=== PATIENT | female | born 1975 | race Caucasian/White ===

== ENCOUNTER 2024-10-11 13:03 | Emergency (ER) | payer MEDICARE, OTHER, SELFPAY ==
[2024-10-11 13:13] VITALS: BP 126/83
[2024-10-11 13:55] VITALS: BMI 31.3
--- NOTE | 2024-10-11 15:23 | ED.MUSCINJ ---
HPI-Injury
General
Chief Complaint: Fall
Source: patient
Exam Limitations: none
Time Seen by Provider: 10/11/24 14:45
Nursing documentation reviewed up to this point in time: agreed with
History of Present Illness-Injury
Initial Injury comments:
49 yo female w h/o Myasthenia Gravis, HTN, Hoshimoto's thyroiditis, presents for injury to left wrist and ankle. She was dancing at a neighbor's house last night, fell and injured left foot and ankle and left wrist.
Past History
Past History
ED Past Medical History: HTN and Other (migraines/Laurent's/myasthenia gravis)
ED Past Surgical History: Other (thymectomy)
Social History
Tobacco: Non-smoker
Alcohol: Occasional
Personal:
Living: with family
Employment: Not employed
Review of Systems
Review of Systems
Allergies reviewed?: Yes
All Other Systems: ROS reviewed and negative except as documented in HPI and ROS
Musculoskeletal: Reports other (pain left wrist, left foot and ankle.); Denies neck pain or back pain
Skin: Reports no symptoms
Neurological: Denies weakness or numbness
Musculoskeletal Injury Exam
Musculoskeletal Injury Exam
Left Wrist:
Pain with Movement?: Mild
Tender to palpation?: Mild
Soft tissue swelling?: Mild
Strain- Sprain- Tear (Connective tissue injury)?: Mild
Malalignment/deformity?: No
Range of motion: Limited
Distal skin color and temperature: normal-warm & good color
Capillary Refill: normal
Normal distal neurovascular exam?: Yes
Left Ankle:
Pain with Movement?: Moderate
Tender to palpation?: Moderate (Anterior and lateral aspect)
Soft tissue swelling?: Moderate
External deformity and angulation?: None
Strain- Sprain- Tear (Connective tissue injury)?: Moderate
Malalignment/deformity?: No
Range of motion: Limited
Distal skin color and temperature: normal-warm & good color
Capillary Refill: normal
Normal distal neurovascular exam?: Yes
Left Foot:
Pain with Movement?: Moderate
Tender to palpation?: Moderate (Lateral aspect)
Soft tissue swelling?: Moderate
External deformity and angulation?: None
Strain- Sprain- Tear (Connective tissue injury)?: Moderate
Range of motion: Limited
Distal skin color and temperature: normal-warm & good color
Capillary Refill: normal
Normal distal neurovascular exam?: Yes
Phy Exam
Physical Exam
Physical Exam:
PHYSICAL EXAMINATION:
General: no apparent distress, not acutely ill
Neuro: alert and oriented.
Psychiatric: well kept. interactive and cooperative
Musculoskeletal: Moves with ease
Skin: Warm, pink.
Injury Course
Orders/Labs/Results
Orders:
Orders
10/11/24 13:05
Wrist, Left 3 Views CR [CR Wrist - Left Min 3 Views] Urgent
Comment:
Reason For Exam: fall
10/11/24 13:06
Ankle, left 3 view CR [CR Ankle - Left Min 3 Views ] Urgent
Comment:
Reason For Exam: fall
Foot, Left 3 View [CR Foot - Left Min 3 Views] Urgent
Comment:
Reason For Exam: fall
10/11/24 14:57
0.9% Sodium Chloride 1000 ml [Nss] 1,000 ml IV BOLUS
10/11/24 14:58
Ondansetron Injectable [Zofran] 4 mg IV NOW STA
10/11/24 15:16
Aric Wrap Left-Treatment ONCE
Ortho Boot Left- Treatment ONCE
Short or tall?: Tall
[place] Wrist Left-Treatment ONCE
10/11/24 16:33
Crutches-Treatment ONCE
10/11/24 14:58
10/11/24 14:58
Procedures
Splint Check
Splint checked by provider?: Yes
Circulation/Movement/Sensation post splint application: brisk cap refill and full sensation
MDM/Problems Addressed
Differential Diagnosis Includes:
Fracture versus soft tissue injury to wrist and ankle and foot
MDM/Problems Addressed:
49 yo female w h/o Myasthenia Gravis, HTN, Hoshimoto's thyroiditis, presents for injury to left wrist and ankle. She was dancing at a neighbor's house last night, fell and injured left foot and ankle and left wrist.
Xray left wrist: No fracture. [place] wrist splint applied. Ring removed.
Xray left foot: Neg
Xray left ankle: Avulsion fracture navicular bone
Aric wrap, ortho boot applied. Crutches given
[place] left wrist splint applied, distal N/V intact, brisk capillary refill after application
Referred to orthopedics for f/u
*Critical Care Note
Total Time (30-74mins, 75-104mins- exclusive of procedures): Not Applicable
ED Attending Note
-
Portions of this chart may have been created with voice recognition software.� Occasional wrong word or��sound alike� substitutions may have occurred due to the inherent limitations of voice recognition software.
Discharge Plan
Departure
Patient Disposition: Home (Routine Discharge)
Date of Disposition: 10/11/24
Time of Disposition: 16:33
Patient with high blood pressure during this ER visit?: No
Condition: Good
Discharge Problem:
Fall from slip, trip, or stumble, Sprain of left wrist, Avulsion fracture of ankle, Foot sprain
Instructions: Avulsion Fracture (DC), Wrist Sprain ED, Foot sprain, Cold therapy for pain
Prescriptions:
No Action
pyridostigmine bromide [Mestinon] 60 MG tablet
60 mg PO TID
hydrochlorothiazide 12.5 MG capsule
12.5 mg PO DAILY
cefdinir [Omnicef] 300 MG capsule
600 mg PO BID
azithromycin 600 MG tablet
600 mg PO DAILY
levothyroxine 112 MCG tablet
112 mcg PO DAILY
probenecid 500 MG tablet
250 mg PO BID
hydrocodone-acetaminophen [Vicodin ES] 1 EACH tablet
1 ea PO TID
oseltamivir [Tamiflu] 75 mg capsule
75 mg PO BID Qty: 10 0RF
Referrals:
Mio Cerna Jr., DO [Family Provider] -
Sterling Soto MD [Active] - Next open appointment
Activity Restrictions/Additional Instructions:
As we discussed, wear the wrist splint until you can move the wrist comfortably without it.
Wear the Aric wrap and Ortho shoe with gradually increasing weightbearing as comfort permits.
See the orthopedic doctor sometime within the next 1 to 2 weeks for recheck.
Use the crutches as needed
Tylenol as needed for pain.
Rest with the foot elevated to the level of your heart is much as you can in the next 2 days. Apply cold compress 20 minutes off and on is much as you can in the next 2 days.
Interventions
Interventions:
*Risk Screen - Suicide Last Done: 10/11/24 13:13
*General Assessment Last Done: 10/11/24 13:13
*Neglect/Abuse Screening Last Done: 10/11/24 15:00
*ED- Fall Risk Assessment Last Done: 10/11/24 13:55
*ED COVID-19 Vaccine History Last Done: 10/11/24 13:13
*Nursing Disposition Last Done: 10/11/24 17:16
ED-Musculoskeletal Assessment Last Done: 10/11/24 13:55
ED- Neurological Assessment Last Done: 10/11/24 13:55
ED-Skin Assessment Last Done: 10/11/24 13:55
Discharge Date and Time
Discharge Date/Time: 10/11/24 16:50
Print Language: POLISH
--- NOTE | 2024-10-11 17:15 | EDRN ---
Reviewed discharge instructions with patient. Verbalized understanding. Taken to lobby in wheelchair.
[2024-10-11 17:16] VITALS: BP 121/89
== END 2024-10-11 16:50 | disposition home or self-care (01) ==
LOC: EMR 13:03
PROVIDERS: EMERGENCY PHYSICIAN Emergency Medicine; FAMILY PHYSICIAN Family Medicine
DX: S62.002A Unspecified fracture of navicular [scaphoid] bone of left wrist, initial encounter for closed fracture (principal); S63.502A Unspecified sprain of left wrist, initial encounter; S93.402A Sprain of unspecified ligament of left ankle, initial encounter; M79.89 Other specified soft tissue disorders; W18.39XA Other fall on same level, initial encounter; Y93.41 Activity, dancing; Y92.89 Other specified places as the place of occurrence of the external cause; G70.00 Myasthenia gravis without (acute) exacerbation; I10 Essential (primary) hypertension; E06.3 Autoimmune thyroiditis; G43.909 Migraine, unspecified, not intractable, without status migrainosus
CPT/HCPCS: 99284; 29515; 29125; 73110; 73610; 73630